=== PATIENT | female | born 1925 | race Caucasian/White ===

== ENCOUNTER 2016-03-09 10:20 | Observation (INO) | payer OTHER ==
--- NOTE | 2016-03-09 11:52 | PDOC ---
History of Present Illness - General Chief Complaint: Syncope/Near Syncope Stated Complaint: FAINTED LAST NIGHT Time Seen by Provider: 03/09/16 10:46 - History of Present Illness Initial Comments: 03/09/16 11:52 89-year-old female with a past medical history of hypertension, hyperlipidemia, and her remote DC, and a stent Patient has been having 4 months of episodes of lightheadedness, and her reading tutor has been switching her medications to see if this is related She was switched from Toprol-XL to Coreg, but this has not seemed to make a difference She has never had a previous syncopal episode Last night at 9 PM, she went to the bathroom and was having a bowel movement She states that she was not straining at all She suddenly developed severe dizziness and vertigo (very different than the lightheaded episodes that she's been having), and then tried to walk into her bedroom When she got to her bedroom and got near the bed, she had a syncopal episode, and passed out and ended up on the position on the floor She thinks she was out for about 1 minute, and awakened on the floor between the dresser and the bed She denies hitting her head, or having any head injury She was incontinent of stool during this episode, but not incontinent of urine She denied any chest pain, palpitations, headache, or focal neurologic complaints before or after the incident She states that she had dental work about a week ago, and since that time she's had some abdominal cramping, but no diarrhea or vomiting She denies any fevers or chills, vomiting or diarrhea, cough or sputum, chest pain or shortness of breath, or any other associated complaints She denies any other complaints at this time, and the remainder of the review of systems is negative Past History - Past Medical History Allergies/Adverse Reactions: Allergies Allergy/AdvReac Type Severity Reaction Status Date / Time No Known Allergies Allergy Unverified 03/24/12 09:53 Home Medications: Ambulatory Orders Cholecalciferol (Vitamin D3) [Vitamin D3] 2,000 unit PO DAILY capsule 10/19/15 Multivitamins [Multivit ([facility] Formulary)] 1 tab PO DAILY 03/09/16 Cardiac Disorders: Yes (STENT X1) HTN: Yes Hypercholesterolemia: Yes Other medical history: BILATERAL KNEE ARTHRITIS - Psycho/Social/Smoking Cessation Hx Anxiety: No Suicidal Ideation: No Smoking History: Never smoked Hx Alcohol Use: No Drug/Substance Use Hx: No Substance Use Type: None Review of Systems - Review of Systems Able to Perform ROS?: Yes Comments:: 03/09/16 11:55 12 point review of systems is as per history of present illness and otherwise negative *Physical Exam - Vital Signs Last Vital Signs Temp Pulse Resp BP Pulse Ox 98.1 F 83 17 156/74 98 03/09/16 10:41 03/09/16 10:41 03/09/16 10:41 03/09/16 10:41 03/09/16 10:41 - Physical Exam Comments: 03/09/16 11:55 Physical exam Last Vital Signs Temp Pulse Resp BP Pulse Ox 98.1 F 83 17 156/74 98 03/09/16 10:41 03/09/16 10:41 03/09/16 10:41 03/09/16 10:41 03/09/16 10:41 GENERAL: The patient is awake, alert, and fully oriented, and in no apparent distress. HEAD: Normal with no signs of trauma. EYES: Pupils equal, round and reactive to light, extraocular movements intact, sclera anicteric, conjunctiva are normal. No nystagmus is noted ENT: Moist mucous membranes. NECK: Normal range of motion, supple LUNGS: Breath sounds equal, clear to auscultation bilaterally. No wheezes, and no crackles. HEART: Regular rate and rhythm, normal S1 and S2 without murmur, rub or gallop. ABDOMEN: Soft, nontender, normoactive bowel sounds. No guarding, no rebound. No masses appreciated. EXTREMITIES: Normal range of motion, no edema. No clubbing or cyanosis. No cords, erythema, or tenderness. NEUROLOGICAL: Cranial nerves II through XII grossly intact. Normal speech, motor 5 out of 5 and equal in the upper and lower extremities bilaterally Alert and answering questions, grossly nonfocal neurologic exam PSYCH: Normal mood, normal affect. SKIN: Warm, Dry, ED Treatment Course - LABORATORY CBC & Chemistry Diagram: 03/10/16 08:00 03/10/16 08:00 - RADIOLOGY Radiology Studies Ordered: Category Date Time Status HEAD CT WITHOUT CONTRAST [CT] Stat CT Scan 03/09/16 11:46 Ordered CHEST X-RAY PORTABLE* [RAD] Stat Radiology 03/09/16 11:47 Ordered Medical Decision Making - Medical Decision Making 03/09/16 11:48 EKG Normal sinus rhythm 71, normal axis Normal SD interval Incomplete left bundle branch block Normal QTC There are lateral T-wave inversions in 1, L, V5, and V6 There is poor R wave progression across the anterior precordium There are other nonspecific ST-T waves There is one isolated PVC When compared to the EKG of 11/25/16, which was faxed from the reading tutor's office Today's EKG is unchanged from the prior EKG 03/09/16 13:35 CT scan of the head without NAD Chest x-ray Mild cardiomegaly No infiltrate is seen Labwork significant for Normal cardiac enzymes Remainder the labwork reviewed Laboratory Results - last 24 hr 03/09/16 03/09/16 03/09/16 11:46 12:00 12:00 WBC 10.3 H D RBC 4.61 Hgb 12.1 Hct 38.4 MCV 83.2 MCHC 31.5 L RDW 14.9 Plt Count 260 MPV 8.7 Sodium 135 L Potassium 3.6 D Chloride 98 Carbon Dioxide 26 Anion Gap 11 BUN 26 H Creatinine 1.1 Creat Clearance w eGFR 46.88 Random Glucose 130 H D Calcium 9.2 Magnesium 1.7 L Total Bilirubin 1.0 AST 34 D ALT 11 Alkaline Phosphatase 75 D Creatine Kinase Troponin I Total Protein 6.9 Albumin 3.4 L Urine Color Yellow Urine Appearance Cloudy Urine pH 5.0 Ur Specific [place] 1.020 Urine Protein Negative Urine Glucose (UA) Negative Urine Ketones Negative Urine Blood 1+ H Urine Nitrite Negative Urine Bilirubin Negative Urine Urobilinogen 0.2 e.u/dl Ur Leukocyte Esterase 1+ H Urine RBC 3-5 Urine WBC 3-5 Ur Epithelial Cells Moderate Amorphous Urates Few Urine Bacteria Moderate 03/09/16 12:00 WBC RBC Hgb Hct MCV MCHC RDW Plt Count MPV Sodium Potassium Chloride Carbon Dioxide Anion Gap BUN Creatinine Creat Clearance w eGFR Random Glucose Calcium Magnesium Total Bilirubin AST ALT Alkaline Phosphatase Creatine Kinase 50 Troponin I < 0.03 L Total Protein Albumin Urine Color Urine Appearance Urine pH Ur Specific [place] Urine Protein Urine Glucose (UA) Urine Ketones Urine Blood Urine Nitrite Urine Bilirubin Urine Urobilinogen Ur Leukocyte Esterase Urine RBC Urine WBC Ur Epithelial Cells Amorphous Urates Urine Bacteria 03/09/16 13:53 Case and all results discussed with hospitalist-Will place in observation Impression-syncope *DC/Admit/Observation/Transfer Diagnosis at time of Disposition: Syncope and collapse - Discharge Dispostion Condition at time of disposition: Improved Admit: Yes - Referrals
[2016-03-09] MEDS ORDERED: SODIUM CHLORIDE 1,000 ML IV SCH (12:00)
[2016-03-09 12:15] LABS: MCH 26.2 pg (25.7-33.7); MCHC 31.5 g/dl (32.0-36.0); MEAN CELL VOLUME 83.2 fl (80-96); MEAN PLT VOLUME 8.7 fl (7.5-11.1); PLATELET COUNT 260 K/MM3 (134-434); RDW 14.9 % (11.6-15.6); WHITE BLOOD COUNT 10.3 K/mm3 (4.0-10.0)
[2016-03-09 12:26] LABS: URINE BILIRUBIN Negative (NEGATIVE); URINE GLUCOSE (UA) Negative (NEGATIVE); URINE KETONE Negative (NEGATIVE); URINE NITRITE Negative (NEGATIVE); URINE PROTEIN Negative (NEGATIVE); URINE UROBILINOGEN 0.2 E.U/dl (0.2-1.0)
[2016-03-09 12:37] LABS: ALBUMIN 3.4 g/dl (3.5-5.0); CALCIUM 9.2 mg/dl (8.4-10.2); CPK(DFH) 50 IU/L (26-140); CREATININE 1.1 mg/dl (0.6-1.3); MAGNESIUM 1.7 mg/dL (1.8-2.4); TOT PROT 6.9 g/dl (6.4-8.3)
[2016-03-09 12:53] LABS: URINE APPEARANCE CLOUDY; URINE BLOOD 1+ (NEGATIVE); URINE COLOR YELLOW; URINE LEUK ESTERASE 1+ (NEGATIVE)
[2016-03-09 12:54] LABS: URINE BACTERIA MODERATE /hpf (NEGATIVE)
[2016-03-09 13:25] LABS: TROPONIN I (DFP) < 0.03 ng/ml (0.03-0.50)
[2016-03-09] MEDS ORDERED: ONDANSETRON 4 MG/2 ML VIAL IVPB PRN (15:29)
[2016-03-09] MEDS ORDERED: ACETAMINOPHEN 325 MG TABLET (FP) PO PRN (15:29)
--- NOTE | 2016-03-09 15:35 | HP ---
CHIEF COMPLAINT: Syncope PCP: Dr. Garg Style Advisor: Dr. Mirza HISTORY OF PRESENT ILLNESS: This is an 89-year-old female with a past medical history of HTN, HLD, CAD s/p [place] and stent x 1 in 1981 who presented to the ED today following a syncopal episode. She notes that she has been having episodes of lightheadedness; her executive staff assistant has been making adjustments to her medications (Toprol to Coreg), but this has not helped. This is her first syncopal episode. She states that she felt lightheaded while having a bowel movement last night, but denies straining. She stood up and felt dizzy (more like room-spinning, different from usual lightheadedness) and lost consciousness. 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 [employer] Smoking: Never smoker Alcohol: Occasional Allergies No Known Allergies Allergy (Unverified 03/24/12 09:53) HOME MEDICATIONS: Medication Instructions Recorded Cholecalciferol (Vitamin D3) 2,000 unit PO DAILY capsule 10/19/15 [Vitamin D3] Carvedilol 6.25 mg PO BID tablet 01/16/16 Olmesartan Med/Amlodipine/Hctz 1 each PO DAILY tablet 01/16/16 [Tribenzor 20-5-12.5 Mg Tablet] Acetaminophen [Tylenol] 650 mg PO ONCE PRN 03/09/16 Multivitamins [Tab-A-Vit -] 1 tab PO DAILY 03/09/16 REVIEW OF SYSTEMS CONSTITUTIONAL: Absent: fever, chills, diaphoresis, generalized weakness, malaise, loss of appetite, weight change HEENT: Absent: rhinorrhea, nasal congestion, throat pain, throat swelling, difficulty swallowing, mouth swelling, ear pain, eye pain, visual changes CARDIOVASCULAR: See HPI RESPIRATORY: Absent: cough, shortness of breath, dyspnea with exertion, orthopnea, wheezing, stridor, hemoptysis GASTROINTESTINAL: Absent: abdominal pain, abdominal distension, nausea, vomiting, diarrhea, constipation, melena, hematochezia GENITOURINARY: Absent: dysuria, frequency, urgency, hesitancy, hematuria, flank pain, genital pain MUSCULOSKELETAL: Absent: myalgia, arthralgia, joint swelling, back pain, neck pain SKIN: Absent: rash, itching, pallor HEMATOLOGIC/IMMUNOLOGIC: Absent: easy bleeding, easy bruising, lymphadenopathy, frequent infections ENDOCRINE: Absent: unexplained weight gain, unexplained weight loss, heat intolerance, cold intolerance NEUROLOGIC: Absent: headache, focal weakness or paresthesias, dizziness, unsteady gait, seizure, mental status changes, bladder or bowel incontinence PSYCHIATRIC: Absent: anxiety, depression, suicidal or homicidal ideation, hallucinations. PHYSICAL EXAMINATION Vital Signs - 24 hr 03/09/16 03/09/16 03/09/16 10:41 13:00 14:12 Temperature 98.1 F Pulse Rate 83 Pulse Rate [ 65 58 L Apical] Respiratory 17 17 17 Rate Blood Pressure 156/74 Blood Pressure 145/59 141/58 [Right Arm] O2 Sat by Pulse 98 98 97 Oximetry (%) 03/09/16 15:10 Temperature Pulse Rate Pulse Rate [ 64 Apical] Respiratory 17 Rate Blood Pressure Blood Pressure 129/68 [Right Arm] O2 Sat by Pulse 98 Oximetry (%) GENERAL: Awake, alert, and fully oriented, in no acute distress. HEAD: Normal with no signs of trauma. EYES: Pupils equal, round and reactive to light, extraocular movements intact, sclera anicteric, conjunctiva clear. No lid lag. EARS, NOSE, THROAT: Ears normal, nares patent, oropharynx clear without exudates. Moist mucous membranes. NECK: Normal range of motion, supple without lymphadenopathy, JVD, or masses. LUNGS: Breath sounds equal, clear to auscultation bilaterally. No wheezes, and no crackles. No accessory muscle use. HEART: Regular rate and rhythm, normal S1 and S2 without murmur, rub or gallop. ABDOMEN: Soft, nontender, not distended, normoactive bowel sounds, no guarding, no rebound, no masses. No hepatomegaly or splenomegaly. MUSCULOSKELETAL: Normal range of motion at all joints. No bony deformities or tenderness. No CVA tenderness. UPPER EXTREMITIES: 2+ pulses, warm, well-perfused. No cyanosis. No clubbing. Cap refill <2 seconds. No peripheral edema. LOWER EXTREMITIES: 2+ pulses, warm, well-perfused. No calf tenderness. No peripheral edema. NEUROLOGICAL: Cranial nerves II-XII intact. Normal speech. Normal gait. PSYCHIATRIC: Cooperative. Good eye contact. Appropriate mood and affect. SKIN: Warm, dry, normal turgor, no rashes or lesions noted. Laboratory Results - last 24 hr 03/09/16 03/09/16 03/09/16 11:46 12:00 12:00 WBC 10.3 H D RBC 4.61 Hgb 12.1 Hct 38.4 MCV 83.2 MCHC 31.5 L RDW 14.9 Plt Count 260 MPV 8.7 Sodium 135 L Potassium 3.6 D Chloride 98 Carbon Dioxide 26 Anion Gap 11 BUN 26 H Creatinine 1.1 Creat Clearance w eGFR 46.88 Random Glucose 130 H D Calcium 9.2 Magnesium 1.7 L Total Bilirubin 1.0 AST 34 D ALT 11 Alkaline Phosphatase 75 D Creatine Kinase Troponin I Total Protein 6.9 Albumin 3.4 L Urine Color Yellow Urine Appearance Cloudy Urine pH 5.0 Ur Specific [place] 1.020 Urine Protein Negative Urine Glucose (UA) Negative Urine Ketones Negative Urine Blood 1+ H Urine Nitrite Negative Urine Bilirubin Negative Urine Urobilinogen 0.2 e.u/dl Ur Leukocyte Esterase 1+ H Urine RBC 3-5 Urine WBC 3-5 Ur Epithelial Cells Moderate Amorphous Urates Few Urine Bacteria Moderate 03/09/16 12:00 WBC RBC Hgb Hct MCV MCHC RDW Plt Count MPV Sodium Potassium Chloride Carbon Dioxide Anion Gap BUN Creatinine Creat Clearance w eGFR Random Glucose Calcium Magnesium Total Bilirubin AST ALT Alkaline Phosphatase Creatine Kinase 50 Troponin I < 0.03 L Total Protein Albumin Urine Color Urine Appearance Urine pH Ur Specific [place] Urine Protein Urine Glucose (UA) Urine Ketones Urine Blood Urine Nitrite Urine Bilirubin Urine Urobilinogen Ur Leukocyte Esterase Urine RBC Urine WBC Ur Epithelial Cells Amorphous Urates Urine Bacteria ASSESSMENT/PLAN: 89 year old female with syncope. Problem List - Problem (1) Syncope and collapse Assessment/Plan: -Monitor on telemetry -Serial troponins to rule out [place] -Echocardiogram and carotid dopplers -Orthostatic vital signs -Gentle IVF -Follow up urine culture; no urinary symptoms, observe off antibiotics Code(s): R55 - SYNCOPE AND COLLAPSE (2) Hypertension Assessment/Plan: -At goal -Continue home regimen -Sodium-controlled diet Code(s): I10 - ESSENTIAL (PRIMARY) HYPERTENSION (3) Hyperlipidemia Assessment/Plan: -Continue Zetia Code(s): E78.5 - HYPERLIPIDEMIA, UNSPECIFIED (4) CAD (coronary artery disease) Assessment/Plan: -Continue Plavix Code(s): I25.10 - ATHSCL HEART DISEASE OF [place] CORONARY ARTERY W/O ANG PCTRS (5) DVT prophylaxis Assessment/Plan: -Heparin sq 5000 units bid -Ambulation with PT Code(s): ECX2460 - Visit type - Emergency Visit Emergency Visit: Yes Care time: The patient presented to the Emergency Department on the above date and was hospitalized for further evaluation of their emergent condition. - New Patient This patient is new to me today: Yes Date on this admission: 03/09/16 - Critical Care Critical Care patient: No
[2016-03-09] MEDS ORDERED: MAGNESIUM SULF 50% (8.12 MEQ/2 ML-1 GM VIAL) IVPB ONE (15:39)
[2016-03-09] MEDS ORDERED: MAGNESIUM SULF 50% (8.12 MEQ/2 ML-1 GM VIAL) ONE (16:35)
[2016-03-09 17:43] VITALS: BMI 35.9
[2016-03-09] MEDS: DOCUSATE SODIUM 100 MG CAPSULE (FP) PO SCH (21:28)
[2016-03-09] MEDS: CARVEDILOL 6.25 MG TABLET (FP) PO SCH (21:29)
[2016-03-09] MEDS: HEPARIN NA (PORCINE) 5,000 UNITS/ML 1ML VIAL SQ SCH (21:29)
[2016-03-10] MEDS: DOCUSATE SODIUM 100 MG CAPSULE (FP) PO SCH (06:25)
[2016-03-10 08:23] LABS: BASOPHIL 0.2 % (0-2.0); EOSINOPHIL 1.4 % (0-4.5); MCH 27.1 pg (25.7-33.7); MEAN CELL VOLUME 84.9 fl (80-96); MEAN PLT VOLUME 8.7 fl (7.5-11.1); NEUTROPHILS 73.5 % (42.8-82.8); PLATELET COUNT 225 K/MM3 (134-434); WHITE BLOOD COUNT 7.6 K/mm3 (4.0-10.0)
[2016-03-10 08:44] LABS: ALBUMIN 2.9 g/dl (3.5-5.0); ALK PHOS 63 U/L (32-92); ANION GAP 8 (8-16); BILIRUBIN,TOTAL 0.7 mg/dl (0.2-1.0); CALCIUM 8.7 mg/dl (8.4-10.2); CO2 28 mmol/L (22-28); CREATININE 0.8 mg/dl (0.6-1.3); GLUCOSE,RANDOM 120 mg/dl (74-106); MAGNESIUM 1.8 mg/dL (1.8-2.4); SGOT/AST 18 U/L (10-42); SGPT/ALT 9 U/L (10-40); TOT PROT 5.7 g/dl (6.4-8.3)
[2016-03-10] MEDS ORDERED: amLODIPine BESYLATE 5 MG TABLET (FP) PO SCH (10:00)
[2016-03-10] MEDS ORDERED: VALSARTAN 160 MG TABLET (UD) PO SCH (10:00)
[2016-03-10] MEDS ORDERED: OLMESARTAN PO SCH (10:00)
[2016-03-10] MEDS ORDERED: MULTIVITAMINS (DAILY MVI) TABLET (FP) PO SCH (10:00)
[2016-03-10] MEDS ORDERED: CHOLECALCIFEROL (VITAMIN D3) 1,000 UNIT TABLET (FP) PO SCH (10:00)
[2016-03-10] MEDS ORDERED: CLOPIDOGREL BISULFATE 75 MG TABLET (FP) PO SCH (10:00)
[2016-03-10] MEDS ORDERED: HYDROCHLOROTHIAZIDE 12.5 MG CAPSULE (FP) PO SCH (10:00)
[2016-03-10] MEDS ORDERED: [UNRECOGNIZED DRUG - OTHER] PO SCH (10:00)
[2016-03-10] MEDS ORDERED: HYDROCHLOROTHIAZIDE PO SCH (10:00)
[2016-03-10] MEDS ORDERED: EZETIMIBE 10 MG TABLET (FP) PO SCH (10:00)
[2016-03-10] MEDS ORDERED: AMLODIPINE PO SCH (10:00)
[2016-03-10] MEDS: CARVEDILOL 6.25 MG TABLET (FP) PO SCH (10:35)
[2016-03-10] MEDS: HEPARIN NA (PORCINE) 5,000 UNITS/ML 1ML VIAL SQ SCH (10:35)
--- NOTE | 2016-03-10 13:16 | PN ---
Physical Exam: SUBJECTIVE: Patient seen and examined OBJECTIVE: Vital Signs Period Temp Pulse Resp BP Sys/Lui Pulse Ox Last 24 Hr 97.6 F-98.4 F 63-74 18-20 123-149/50-67 94-98 GENERAL: The patient is awake, alert, and fully oriented, in no acute distress. HEAD: Normal with no signs of trauma. EYES: PERRL, extraocular movements intact, sclera anicteric, conjunctiva clear. No ptosis. ENT: Ears normal, nares patent, oropharynx clear without exudates, moist mucous membranes. NECK: Trachea midline, full range of motion, supple. LUNGS: Breath sounds equal, clear to auscultation bilaterally, no wheezes, no crackles, no accessory muscle use. HEART: Regular rate and rhythm, S1, S2 without murmur, rub or gallop. ABDOMEN: Soft, nontender, nondistended, normoactive bowel sounds, no guarding, no rebound, no hepatosplenomegaly, no masses. EXTREMITIES: 2+ pulses, warm, well-perfused, no edema. NEUROLOGICAL: Cranial nerves II through XII grossly intact. Normal speech, gait not observed. PSYCH: Normal mood, normal affect. SKIN: Warm, dry, normal turgor, no rashes or lesions noted Laboratory Results - last 24 hr 03/10/16 03/10/16 08:00 08:00 WBC 7.6 RBC 4.07 Hgb 11.0 Hct 34.5 MCV 84.9 MCHC 32.0 RDW 15.0 Plt Count 225 MPV 8.7 Neutrophils % 73.5 D Lymphocytes % 17.1 D Monocytes % 7.8 Eosinophils % 1.4 Basophils % 0.2 Sodium 140 Potassium 4.0 Chloride 104 Carbon Dioxide 28 Anion Gap 8 BUN 19 H D Creatinine 0.8 D Creat Clearance w eGFR > 60 Random Glucose 120 H Calcium 8.7 Magnesium 1.8 Total Bilirubin 0.7 D AST 18 D ALT 9 L Alkaline Phosphatase 63 Total Protein 5.7 L Albumin 2.9 L Active Medications Generic Name Dose Route Start Last Admin Trade Name Freq PRN Reason Stop Dose Admin Acetaminophen 650 mg 03/09/16 15:29 Tylenol - PO Q6H PRN FEVER OR PAIN Amlodipine Besylate 5 mg 03/10/16 10:00 03/10/16 10:35 Norvasc - PO 5 mg DAILY JOEL Administration Carvedilol 6.25 mg 03/09/16 22:00 03/10/16 10:35 Coreg - PO 6.25 mg BID JOEL Administration Cholecalciferol 2,000 unit 03/10/16 10:00 03/10/16 10:32 Vitamin D3 - PO 2,000 unit DAILY JOEL Administration Clopidogrel Bisulfate 75 mg 03/10/16 10:00 03/10/16 10:32 Plavix - PO 75 mg DAILY JOEL Administration Docusate Sodium 100 mg 03/09/16 22:00 03/10/16 06:25 Colace - PO Not Given TID JOEL Ezetimibe 10 mg 03/10/16 10:00 03/10/16 10:35 Zetia - PO 10 mg DAILY JOEL Administration Heparin Sodium (Porcine) 5,000 unit 03/09/16 22:00 03/10/16 10:35 Heparin - SQ 5,000 unit BID JOEL Administration Hydrochlorothiazide 12.5 mg 03/10/16 10:00 03/10/16 10:35 Hctz - PO 12.5 mg DAILY JOEL Administration Sodium Chloride 1,000 mls @ 75 mls/hr 03/09/16 12:00 03/09/16 12:30 Normal Saline - IV 75 mls/hr ASDIR JOEL Administration Multivitamins/Minerals/Vitamin C 1 tab 03/10/16 10:00 03/10/16 10:32 Tab-A-Vit - PO 1 tab DAILY JOEL Administration Ondansetron HCl 4 mg 03/09/16 15:29 Zofran Injection IVPB Q6H PRN NAUSEA Valsartan 160 mg 03/10/16 10:00 03/10/16 10:32 Diovan - PO 160 mg DAILY JOEL Administration ASSESSMENT/PLAN: ASSESSMENT/PLAN: 89 year old female with syncope. Problem List - Problem (1) Syncope and collapse Assessment/Plan: -Monitor on telemetry -Serial troponins to rule out [place] -Echocardiogram and carotid dopplers -Orthostatic vital signs -Gentle IVF -Follow up urine culture; no urinary symptoms, observe off antibiotics Code(s): R55 - SYNCOPE AND COLLAPSE (2) Hypertension Assessment/Plan: -At goal -Continue home regimen -Sodium-controlled diet Code(s): I10 - ESSENTIAL (PRIMARY) HYPERTENSION (3) Hyperlipidemia Assessment/Plan: -Continue Zetia Code(s): E78.5 - HYPERLIPIDEMIA, UNSPECIFIED (4) CAD (coronary artery disease) Assessment/Plan: -Continue Plavix Code(s): I25.10 - ATHSCL HEART DISEASE OF [place] CORONARY ARTERY W/O ANG PCTRS (5) DVT prophylaxis Assessment/Plan: -Heparin sq 5000 units bid -Ambulation with PT Code(s): LHD4740 -
--- NOTE | 2016-03-10 13:54 | CONSULT ---
Consult Consult Specialty:: Cardiology Referred by:: Hospitalist Service Reason for Consultation:: Syncope - History of Present Illness Chief Complaint: Syncope History of Present Illness: This is an 89-year-old female with a past medical history of HTN, HLD, CAD s/p [place] RACQUEL pLCx, angina pectoris who presented to the ED following a syncopal episode. She has chronic positional dizziness despite ongoing medication adjustments, reported lightheadedness while having bowel movement without straining. She stood up and felt dizzy (more like room-spinning, rather than usual lightheadedness) and lost consciousness, denies chest pain, dyspnea, palpitations, orthopnea, PND or LE edema. - History Source History Provided By: Patient Limitations to Obtaining History: No Limitations - Past Medical History Cardio/Vascular: Yes: CAD, [place] - Past Surgical History Past Surgical History: Yes: Stent - Alcohol/Substance Use Hx Alcohol Use: No - Smoking History Smoking history: Never smoked Home Medications - Allergies Allergies/Adverse Reactions: Allergies Allergy/AdvReac Type Severity Reaction Status Date / Time No Known Allergies Allergy Unverified 03/24/12 09:53 - Home Medications Home Medications: Ambulatory Orders Cholecalciferol (Vitamin D3) [Vitamin D3] 2,000 unit PO DAILY capsule 10/19/15 Carvedilol 6.25 mg PO BID tablet 01/16/16 Olmesartan Med/Amlodipine/Hctz [Tribenzor 20-5-12.5 Mg Tablet] 1 each PO DAILY tablet 01/16/16 Acetaminophen [Tylenol] 650 mg PO ONCE PRN 03/09/16 Multivitamins [Tab-A-Vit -] 1 tab PO DAILY 03/09/16 Review of Systems - Review of Systems Neurological: reports: Syncope Vital Signs: Vital Signs Temperature 98.4 F 03/10/16 06:00 Pulse Rate 74 03/10/16 06:07 Respiratory Rate 18 03/10/16 06:13 Blood Pressure 139/64 03/10/16 06:07 O2 Sat by Pulse Oximetry (%) 95 03/10/16 06:13 Constitutional: Yes: No Distress, Calm Neck: Yes: Supple, Other (Negative response to carotid sinus massage) Respiratory: Yes: Regular, CTA Bilaterally Gastrointestinal: Yes: Normal Bowel Sounds, Soft Cardiovascular: Yes: Regular Rate and Rhythm JVD: No Carotid Bruit: No Heart Sounds: Yes: S1, S2 Edema: No - Other Data Labs, Other Data: CBC, BMP 03/10/16 08:00 03/10/16 08:00 SR @ 71 ILBBB occ PVC Echo: Report Reviewed Prior Cardiac Procedures: PTCA with Stent Ejection Fraction %: LVEF > or = 40 % Imaging - Results Chest X-ray: Report Reviewed (NAD) Cat Scan: Report Reviewed (HCT: Negative) Ultrasound: Report Reviewed (Carotid U/S-No sig stenosis) EKG: Report Reviewed (NSR 71 ILBBB, PVC similar to previous 03/06/2016) Problem List - Problems (1) CAD (coronary artery disease) Code(s): I25.10 - ATHSCL HEART DISEASE OF [place] CORONARY ARTERY W/O ANG PCTRS Qualifiers: Coronary Disease-Associated Artery/Lesion type: [place] artery [place] vs. transplanted heart: [place] heart Associated angina: without angina Qualified Code(s): I25.10 - Atherosclerotic heart disease of [place] coronary artery without angina pectoris (2) Hyperlipidemia Code(s): E78.5 - HYPERLIPIDEMIA, UNSPECIFIED Qualifiers: Hyperlipidemia type: pure hypercholesterolemia Qualified Code(s): E78.0 - Pure hypercholesterolemia (3) Hypertension Code(s): I10 - ESSENTIAL (PRIMARY) HYPERTENSION Qualifiers: Hypertension type: essential hypertension Qualified Code(s): I10 - Essential (primary) hypertension (4) H/O myocardial infarction, greater than 8 weeks Code(s): I25.2 - OLD MYOCARDIAL INFARCTION (5) Status post coronary artery stent placement Code(s): Z95.5 - PRESENCE OF CORONARY ANGIOPLASTY IMPLANT AND GRAFT (6) Situational syncope Code(s): R55 - SYNCOPE AND COLLAPSE Assessment/Plan 06/16/2015 Echo: Normal LV size and fxn, mild cLVH, mild-mod MR, mild TR, tr NE 1. Situational syncope 2. CAD s/p [place], s/p RACQUEL pLCx, angina pectoris 3. HTN/HCVD 4. Hyperlipidemia 5. PVC 6. Low vit D levels P:1. Change carvedilol to Bystolic 5 qd, change Tribenzor to Benicar 20 qd, continue Lipitor 40 qd, Zetia 10 qd, Plavix 75 qd, vit D repletion 2. Support stockings, addressed abortive manuevers once prodromal sxs have been experienced 3. May d/c home with f/u in office Saturday, 4. Thank you for consultative opportunity
[2016-03-10 14:20] VITALS: TEMP 98.3
[2016-03-10 14:22] VITALS: BP 111/55; PULSE 75
--- NOTE | 2016-03-10 14:35 | DS ---
Physical Exam: SUBJECTIVE: Patient seen and examined. Still feels slightly lightheaded, but improved. OBJECTIVE: Vital Signs Period Temp Pulse Resp BP Sys/Lui Pulse Ox Last 24 Hr 97.6 F-98.4 F 63-75 18-20 111-149/50-67 94-98 PHYSICAL EXAM GENERAL: The patient is awake, alert, and fully oriented, in no acute distress. HEAD: Normal with no signs of trauma. EYES: PERRL, extraocular movements intact, sclera anicteric, conjunctiva clear. LUNGS: Breath sounds equal, clear to auscultation bilaterally, no wheezes, no crackles, no accessory muscle use. HEART: Regular rate and rhythm, S1, S2 without murmur, rub or gallop. ABDOMEN: Soft, nontender, nondistended, normoactive bowel sounds, no guarding, no rebound. EXTREMITIES: 2+ pulses, warm, well-perfused, no edema. NEUROLOGICAL: Cranial nerves II through XII grossly intact. Normal speech, gait not observed. Laboratory Results - last 24 hr 03/10/16 03/10/16 08:00 08:00 WBC 7.6 RBC 4.07 Hgb 11.0 Hct 34.5 MCV 84.9 MCHC 32.0 RDW 15.0 Plt Count 225 MPV 8.7 Neutrophils % 73.5 D Lymphocytes % 17.1 D Monocytes % 7.8 Eosinophils % 1.4 Basophils % 0.2 Sodium 140 Potassium 4.0 Chloride 104 Carbon Dioxide 28 Anion Gap 8 BUN 19 H D Creatinine 0.8 D Creat Clearance w eGFR > 60 Random Glucose 120 H Calcium 8.7 Magnesium 1.8 Total Bilirubin 0.7 D AST 18 D ALT 9 L Alkaline Phosphatase 63 Total Protein 5.7 L Albumin 2.9 L HOSPITAL COURSE: Date of Admission:03/09/16 Date of Discharge: 03/10/16 89-year-old female with a PMH of HTN, HLD, CAD s/p MO and stent x 1 in 1981 who presented to the ED following a syncopal episode. She reported having episodes of lightheadedness for months; her ballistician has been making adjustments to her medications (Toprol to Coreg), but this has not helped. This was her first syncopal episode. She felt lightheaded while having a bowel movement last night , but denied straining. She stood up and felt dizzy (more like room-spinning, different from usual lightheadedness) and lost consciousness. ER course was notable for: (1) EKG: NSR at 71bpm with incomplete LBBB; lateral TWI also seen on prior EKG of 11/25/16 (2) TNI <0.03 (3) CXR: Mild cardiomegaly (4) Head CT: No acute intracranial process (5) UA with 3-5 WBCs and moderate bacteria Subsequent hospital course Patient was seen and evaluated by her regular cardioloigst, Dr. Mirza. He made the following medication adjustments: changed carvedilol to Bystolic 5 qd, changed Tribenzor to Benicar 20 qd, continued Lipitor 40 qd, Zetia 10 qd, Plavix 75 qd, and vit D repletion. He sent prescriptions to the patient's pharmacy. Patient was discharged in improved condition, no further episodes of lightheadedness. She will follow up with Dr. Mirza in his office on 03/13/16. Minutes to complete discharge: 35 Discharge Summary Reason For Visit: SYNCOPE Current Active Problems CAD (coronary artery disease) (Acute) DVT prophylaxis (Acute) H/O myocardial infarction, greater than 8 weeks (Acute) Hyperlipidemia (Acute) Hypertension (Acute) Situational syncope (Acute) Status post coronary artery stent placement (Acute) Syncope and collapse (Acute) Condition: Improved - Instructions Diet, Activity, Other Instructions: Your medications were changed by your ballistician Dr. Mirza. He sent new prescriptions to your pharmacy. Return to the emergency department for any new or worsening symptoms. Referrals: Titi Garg MD [Primary Care Provider] - Jaydon Mirza MD [Staff Physician] - 03/13/16 9:00 am Disposition: HOME - Home Medications Comprehensive Discharge Medication List: Ambulatory Orders Cholecalciferol (Vitamin D3) [Vitamin D3] 2,000 unit PO DAILY capsule 10/19/15 Carvedilol 6.25 mg PO BID tablet 01/16/16 Olmesartan Med/Amlodipine/Hctz [Tribenzor 20-5-12.5 Mg Tablet] 1 each PO DAILY tablet 01/16/16 Acetaminophen [Tylenol] 650 mg PO ONCE PRN 03/09/16 Multivitamins [Tab-A-Vit -] 1 tab PO DAILY 01/13/17 This patient is new to me today: Yes Date on this admission: 03/10/16 Emergency Visit: Yes ED Registration Date: 03/09/16 Care time: The patient presented to the Emergency Department on the above date and was hospitalized for further evaluation of their emergent condition. Critical Care patient: No - Discharge Referral Referred to [facility] Med [facility] Yes Physician Referral: Titi Garg MD (Int Med)
--- NOTE | 2016-03-10 16:33 | EKG ---
Test Reason : Blood Pressure : / mmHG Vent. Rate : 071 BPM Atrial Rate : 071 BPM P-R Int : 148 ms QRS Dur : 116 ms QT Int : 412 ms P-R-T Axes : 072 016 157 degrees QTc Int : 447 ms SINUS RHYTHM WITH OCCASIONAL PREMATURE VENTRICULAR COMPLEXES INCOMPLETE LEFT BUNDLE BRANCH BLOCK MARKED ST ABNORMALITY, POSSIBLE LATERAL SUBENDOCARDIAL INJURY ABNORMAL ECG WHEN COMPARED WITH ECG OF 03-FEB-2010 22:03, PREMATURE VENTRICULAR COMPLEXES ARE NOW PRESENT OH INTERVAL HAS DECREASED INCOMPLETE LEFT BUNDLE BRANCH BLOCK IS NOW PRESENT CRITERIA FOR SEPTAL INFARCT ARE NO LONGER PRESENT Confirmed by MARIALUISA LINTON MD ([id number]) on 03/10/2016 4:32:41 PM Referred By: JOEL Confirmed By:MARIALUISA LINTON MD
== END 2016-03-10 15:15 | disposition home or self-care (01) ==
LOC: FER 10:20 → FM/S 16:28 → INTOOBSV 16:28
PROVIDERS: ADMIT Internal Medicine; ATTEND Nurse Practitioner Acute Care
DX: R55 Syncope and collapse (principal); E78.5 Hyperlipidemia, unspecified; I25.2 Old myocardial infarction; I25.10 Atherosclerotic heart disease of native coronary artery without angina pectoris; I11.9 Hypertensive heart disease without heart failure; I49.3 Ventricular premature depolarization; Z95.5 Presence of coronary angioplasty implant and graft
CPT/HCPCS: 36415; 70450-TC; 71010-TC; 80053; 81003; 81015; 82550; 83735; 84484; 85025; 85027; 87086; 87186; 93005; 93880-TC; 99285-25; G0378; J1644